=== PATIENT | female | born 1950 | race Two or more races ===

== ENCOUNTER 2020-05-16 06:08 | Day surgery (SDC) | payer OTHER ==
[~2020-05-16 06:08] MED LIST: CELEBREX200MG PO; CHILDREN'S ASPI81 MG PO; CYMBALTA30 MG PO; MAGNESIUM400 MG PO; METOP PO; SUPER B-50 COM1 EACH PO; SYNTHROID150 MCG PO; VITAMIN D PO; ZANAFLEX4 M1 PO
[2020-05-16] MEDS ORDERED: KEFLEX250 MG PO (09:55)
[2020-05-16] MEDS ORDERED: ULTRACET PO (09:56)
== END 2020-05-16 12:40 | disposition home or self-care (01) ==
LOC: CIR.AMB 06:08
PROVIDERS: ATTEND Obstetrics & Gynecology Gynecology
DX: N32.81 Overactive bladder (principal); N39.41 Urge incontinence; Z20.828 Contact with and (suspected) exposure to other viral communicable diseases
CPT/HCPCS: 64581; 64590; C1778; L8679